=== PATIENT | female | born 1955 | race African-American/Black ===

== ENCOUNTER → 2019-02-01 | Outpatient (CLI) | payer BC ==
--- NOTE | 2019-02-01 12:12 | KCIC ---
EXAM: Abdomen sonogram. HISTORY: Pain. TECHNIQUE: Sonographic imaging of the abdomen was performed. COMPARISON: None. FINDINGS: The liver is enlarged. There is hepatic steatosis. No focal hepatic lesion is seen. The common bile duct is normal in caliber. There is a 6 mm nonmobile echogenic lesion along the gallbladder wall, likely a polyp. The gallbladder is otherwise unremarkable. The kidneys are unremarkable. The spleen is normal in size. The pancreas is partially obscured due to bowel gas. The aorta is normal in caliber. The inferior vena cava is patent. IMPRESSION: 1. Hepatomegaly and hepatic steatosis. 2. 6 mm suspected gallbladder polyp. 3. Obscured pancreas due to bowel gas. Electronically signed by: Priscila Avery MD (02/01/2019 12:09 PM) [id number]
== END | disposition home or self-care (01) ==
LOC: KCIC US 07:45
PROVIDERS: ATTEND Internal Medicine
DX: K76.0 Fatty (change of) liver, not elsewhere classified (principal); K82.4 Cholesterolosis of gallbladder; R16.0 Hepatomegaly, not elsewhere classified
CPT/HCPCS: 76700

== ENCOUNTER → 2019-03-12 | Day surgery (SDC) | payer BC ==
[~2019-03-12] VITALS: Ht 170.2 cm; Wt 101.1 kg
[~2019-03-12] MED LIST: BUPIVAC MPF-EPI 0.5%-1:200000 30 ML VIAL. ONE; DEXAMETHASONE SOD PHOS 4 MG/ML VIAL ONE; GLYCOPYRROLATE 1 MG/5 ML VIAL. ONE; HYDROmorphone 2 MG/ML VIAL IV PRN; IOHEXOL 300 MG/ML 50 ML VIAL. ONE; IV RINGERS,LACTATED 1000ML 1,000 ML IV SCH; KETOROLAC 30 MG/ML INJ FOR OR. INJ ONE; LIDOCAINE 1% PF 2 ML VIAL. ID PRN; LIDOCAINE 2% PF 5 ML VIAL. ONE; MIDAZOLAM HCL/PF 2 MG/2 ML VIAL. ONE; MORPHINE SULFATE 2 MG/ML VIAL. IV PRN; NEOSTIGMINE METHYLSULFATE 5 MG/5 ML SYRINGE. ONE; ONDANSETRON PF 4 MG/2 ML VIAL. IV PRN; ONDANSETRON PF 4 MG/2 ML VIAL. ONE; PROCHLORPERAZINE 10 MG/2 ML VIAL. IV PRN; PROPOFOL 20 ML IV ONE; ROCURONIUM 50 MG/5 ML VIAL. ONE; SEVOFLURANE > 120 MINUTES. IH ONE; ePHEDrine PF IN SALINE 50 MG/10 ML SYRINGE. IV ONE; fentaNYL PF VIAL 100 MCG/2 ML VIAL IV PRN; fentaNYL PF VIAL 100 MCG/2 ML VIAL ONE; oxyCODONE/APAP 7.5/325 1 TAB TABLET PO ONE
--- NOTE | 2019-03-12 06:41 | HP ---
ADMIT DATE: HISTORY OF PRESENT ILLNESS: The patient is referred because of a mass in the gallbladder. She apparently for about a month, had had some symptoms with the right upper quadrant pain radiating to the back with some bloating and therefore, she had a sonogram, which showed that she has what looks like a polyp in the gallbladder. She clearly understands that she does have a diseased gallbladder and all the symptoms otherwise may or may not be related to the gallbladder. PAST MEDICAL HISTORY: Shows normal childhood diseases. She is treated for hypercholesterolemia and hypertension. She did have years ago radioactive I-131 for thyroid ablation and now, she takes Synthroid for that. She does not take aspirin today or any anticoagulants. PAST SURGICAL HISTORY: Has included a total abdominal hysterectomy for bleeding, fibroids and she also had a laparoscopic tubal ligation many years ago. ALLERGIES: The patient denies any allergies. SOCIAL HISTORY: Shows that she does not smoke, drink or use illicit drugs. FAMILY HISTORY: Noncontributory for gallstones and she does have four children alive and well. REVIEW OF SYSTEMS: Basically negative except for the gas, bloating and abdominal discomfort. PHYSICAL EXAMINATION: GENERAL: Shows an alert female in no acute distress. HEAD, EYES, EARS, NOSE AND THROAT: Negative. There is no scar in the neck as she had radioactive iodine and thyroid ablation. No guarding was noted. BREASTS: Not examined. CHEST: Clear bilaterally to auscultation. HEART: Had no murmurs, heaves, friction, rubs or thrills and the rate was 74 beats per minute and it was regular. ABDOMEN: Soft, was not protuberant. She did not have tenderness on the day of examination. No guarding, rebound, or other abnormalities. PELVIC: Not done. IMPRESSION: 1. Tumor gallbladder. 2. Hypertension. 3. Hypercholesterolemia. 4. Hypothyroidism, based on I-131 treatment. JEFFREY PERRY MD DR: AYALA/brett JOB#: [id number] / [id number]
[2019-03-12 09:54] LABS: BASO # 0.1 x10^3/uL (0.0-0.2); BASO % 1 % (0-3); EOS # 0.2 x10^3/uL (0.0-0.7); EOS % 2 % (0-3); HEMATOCRIT 38.6 % (36.0-47.0); HEMOGLOBIN 12.7 g/dL (12.0-15.5); LYMPH # 2.8 x10^3/uL (1.0-4.8); LYMPH % 33 % (24-48); MEAN CORPUSCULAR HEMOGLOBIN 30 pg (25-35); MEAN CORPUSCULAR HGB CONC 33 g/dL (31-37); MEAN CORPUSCULAR VOLUME 90 fL (79-100); MONO # 0.5 x10^3/uL (0.0-1.1); MONO % 6 % (0-9); NEUT % 59 % (31-73); PLATELET COUNT 249 x10^3/uL (140-400); RED BLOOD COUNT 4.28 x10^6/uL (3.50-5.40); RED CELL DISTRIBUTION WIDTH 13.6 % (11.5-14.5); WHITE BLOOD COUNT 8.5 x10^3/uL (4.0-11.0)
[2019-03-12 10:04] LABS: PROTHROMBIN TIME PATIENT 13.4 SEC (11.7-14.0)
[2019-03-12 10:12] LABS: CALCIUM 8.5 mg/dL (8.5-10.1); CREATININE 0.9 mg/dL (0.6-1.0); GFR 76.8; POTASSIUM 3.5 mmol/L (3.5-5.1)
[2019-03-12 10:16] LABS: ALBUMIN 3.3 g/dL (3.4-5.0); ALBUMIN/GLOBULIN RATIO 0.8 (1.0-1.7); TOTAL BILIRUBIN 0.7 mg/dL (0.2-1.0); TOTAL PROTEIN 7.6 g/dL (6.4-8.2)
--- NOTE | 2019-03-12 11:13 | PDOC ---
SURGICAL PROGRESS NOTE Subjective Op Note: Surgeon.................................................Jaren Pre op- diag...........................................mass of gallbladder Post op- diag.........................................mass of gallbladder Anesthesia............................................genera Procedure.............................................lap marie with grams Blood loss.............................................15 Drains...................................................none Fluids...................................................see anesthesia sheet Condition..............................................satisfactory Vital Signs Vital Signs Date Time Temp Pulse Resp B/P (MAP) Pulse Ox O2 Delivery O2 Flow Rate FiO2 03/12/19 09:23 98.3 65 20 97 98.3 03/12/19 09:15 139/87 Room Air Labs Laboratory Tests Test 03/12/19 09:40 White Blood Count 8.5 x10^3/uL (4.0-11.0) Red Blood Count 4.28 x10^6/uL (3.50-5.40) Hemoglobin 12.7 g/dL (12.0-15.5) Hematocrit 38.6 % (36.0-47.0) Mean Corpuscular Volume 90 fL (79-100) Mean Corpuscular Hemoglobin 30 pg (25-35) Mean Corpuscular Hemoglobin Concent 33 g/dL (31-37) Red Cell Distribution Width 13.6 % (11.5-14.5) Platelet Count 249 x10^3/uL (140-400) Neutrophils (%) (Auto) 59 % (31-73) Lymphocytes (%) (Auto) 33 % (24-48) Monocytes (%) (Auto) 6 % (0-9) Eosinophils (%) (Auto) 2 % (0-3) Basophils (%) (Auto) 1 % (0-3) Neutrophils # (Auto) 5.0 x10^3uL (1.8-7.7) Lymphocytes # (Auto) 2.8 x10^3/uL (1.0-4.8) Monocytes # (Auto) 0.5 x10^3/uL (0.0-1.1) Eosinophils # (Auto) 0.2 x10^3/uL (0.0-0.7) Basophils # (Auto) 0.1 x10^3/uL (0.0-0.2) Prothrombin Time 13.4 SEC (11.7-14.0) Prothromb Time International Ratio 1.1 (0.8-1.1) Activated Partial Thromboplast Time 26 SEC (24-38) Sodium Level 144 mmol/L (136-145) Potassium Level 3.5 mmol/L (3.5-5.1) Chloride Level 106 mmol/L (98-107) Carbon Dioxide Level 28 mmol/L (21-32) Anion Gap 10 (6-14) Blood Urea Nitrogen 9 mg/dL (7-20) Creatinine 0.9 mg/dL (0.6-1.0) Estimated GFR (Cockcroft-Gault) 76.8 BUN/Creatinine Ratio 10 (6-20) Glucose Level 101 mg/dL (70-99) Calcium Level 8.5 mg/dL (8.5-10.1) Total Bilirubin 0.7 mg/dL (0.2-1.0) Aspartate Amino Transf (AST/SGOT) 25 U/L (15-37) Alanine Aminotransferase (ALT/SGPT) 29 U/L (14-59) Alkaline Phosphatase 114 U/L (46-116) Total Protein 7.6 g/dL (6.4-8.2) Albumin 3.3 g/dL (3.4-5.0) Albumin/Globulin Ratio 0.8 (1.0-1.7) Laboratory Tests Test 03/12/19 09:40 White Blood Count 8.5 x10^3/uL (4.0-11.0) Red Blood Count 4.28 x10^6/uL (3.50-5.40) Hemoglobin 12.7 g/dL (12.0-15.5) Hematocrit 38.6 % (36.0-47.0) Mean Corpuscular Volume 90 fL (79-100) Mean Corpuscular Hemoglobin 30 pg (25-35) Mean Corpuscular Hemoglobin Concent 33 g/dL (31-37) Red Cell Distribution Width 13.6 % (11.5-14.5) Platelet Count 249 x10^3/uL (140-400) Neutrophils (%) (Auto) 59 % (31-73) Lymphocytes (%) (Auto) 33 % (24-48) Monocytes (%) (Auto) 6 % (0-9) Eosinophils (%) (Auto) 2 % (0-3) Basophils (%) (Auto) 1 % (0-3) Neutrophils # (Auto) 5.0 x10^3uL (1.8-7.7) Lymphocytes # (Auto) 2.8 x10^3/uL (1.0-4.8) Monocytes # (Auto) 0.5 x10^3/uL (0.0-1.1) Eosinophils # (Auto) 0.2 x10^3/uL (0.0-0.7) Basophils # (Auto) 0.1 x10^3/uL (0.0-0.2) Prothrombin Time 13.4 SEC (11.7-14.0) Prothromb Time International Ratio 1.1 (0.8-1.1) Activated Partial Thromboplast Time 26 SEC (24-38) Sodium Level 144 mmol/L (136-145) Potassium Level 3.5 mmol/L (3.5-5.1) Chloride Level 106 mmol/L (98-107) Carbon Dioxide Level 28 mmol/L (21-32) Anion Gap 10 (6-14) Blood Urea Nitrogen 9 mg/dL (7-20) Creatinine 0.9 mg/dL (0.6-1.0) Estimated GFR (Cockcroft-Gault) 76.8 BUN/Creatinine Ratio 10 (6-20) Glucose Level 101 mg/dL (70-99) Calcium Level 8.5 mg/dL (8.5-10.1) Total Bilirubin 0.7 mg/dL (0.2-1.0) Aspartate Amino Transf (AST/SGOT) 25 U/L (15-37) Alanine Aminotransferase (ALT/SGPT) 29 U/L (14-59) Alkaline Phosphatase 114 U/L (46-116) Total Protein 7.6 g/dL (6.4-8.2) Albumin 3.3 g/dL (3.4-5.0) Albumin/Globulin Ratio 0.8 (1.0-1.7) JEFFREY PERRY MD Mar 12, 2019 11:13
--- NOTE | 2019-03-12 13:04 | RAD ---
C-arm fluoroscopy with fluoroscopic spot views Clinical indications: Intraoperative cholangiogram. Total fluoroscopic time: 0.10 minutes. Total fluoroscopic spot views: 2. IMPRESSION: Fluoroscopic spot views demonstrate opacification of the extrahepatic biliary tree with free flow of contrast material from the common bile duct into the duodenum. No common bile duct stone or stricture is seen. Electronically signed by: Hao Lovell MD (03/12/2019 1:00 PM) [facility]
--- NOTE | 2019-03-12 14:34 | DISCH ---
DISCHARGE INSTRUCTIONS Condition on Discharge Condition on Discharge: Stable Activity After Discharge Activity Instructions for Disc: Other, see below Other activity instructions: no strenuous activity and may shower Diet after Discharge Diet after Discharge: Clear Liquid Wound Incision Care Wound/Incision Care: Other, see below Other wound/incision instructi: Leave dressing on as long as possible. May remove dressing then bandaid Follow-Up Follow up with: call and make appointment to see me in 14 days. JEFFREY PERRY MD Mar 12, 2019 14:34
[2019-03-12 15:10] VITALS: BP 123/74
--- NOTE | 2019-03-12 20:35 | OP ---
DATE OF SURGERY: SURGEON: Fidel Perry MD PREOPERATIVE DIAGNOSIS: Mass of the gallbladder. POSTOPERATIVE DIAGNOSES: Mass of the gallbladder. ANESTHESIA: General. PROCEDURE: Laparoscopic cholecystectomy with operative cholangiogram. TECHNIQUE: Under general anesthesia, the patient was properly prepped and draped in a routine fashion. The patient had had infraumbilical surgery and has had hysterectomy and other procedures and as such, we made a small incision in the right upper quadrant and passed a balloon up with towel clips on either side, made past the Veress needle down into the peritoneal cavity. We instilled about 2-3 mL of saline and that it flow in right gravity into the abdominal cavity and then insufflated the abdomen with CO2 up to 15. The needle was removed and a 5 mm trocar was placed there. The 5 mm camera was placed there also. There was a lot of omentum up and over the liver and we could not see the gallbladder. Did not know, if these were adhesions or not. There were no adhesions to the anterior abdominal wall and as such, an incision was made in the infraumbilical area and an 11 mm trocar was placed there. The camera was then removed and a 10 mm camera was placed in the infraumbilical port. We then passed a non-cutting blade, a trocar, and nonbladed trocar in the epigastrium just to the right of the falciform ligament and then the lateral abdomen placed a trocar also. We then placed the patient in reverse Trendelenburg left side down and using the dissected graspers, we slowly pushed the omentum down and luckily there were no adhesions. We came down off the liver and off the gallbladder with ease. The fundus of the gallbladder was then grasped with the right lateral grasper and the gallbladder was placed up toward the patient's right shoulder. We then grasped the ampulla of the gallbladder and there was a lot of fat there. We teased this away and could see the cystic duct. We then encircled the cystic duct and put clips two on the gallbladder side as the cystic duct into the gallbladder. We then made a small incision in the cystic duct and then passed through a needle in the right abdomen, passed the catheter with the dye in it and passed into the cystic duct and clipped it in place. We had got all the air out of the tube before putting it in the cystic duct. We then got cholangiograms and they were normal with a dye flowing freely into the duodenum. No filling defects. There was no extravasation. Dye went into the hepatic radicals. The common duct was normal in size. The cystic duct tapered normally and there were no abnormalities and I reviewed this with the radiologist personally. We then removed the clip holding the catheter in place, removed the catheter and needle there, and then clipped the cystic duct 3 times on the patient's side and divided it. The cystic artery was identified. It was clipped twice on the patient's side and once on the gallbladder side and divided. We then shelled the gallbladder out of the gallbladder fossa using Harmonic scalpel. Before it was completely removed, we inspected the hilum. There was no bleeding, no bile leaks and everything was normal. We then amputated the gallbladder from the liver tip. I placed a 5 mm camera in the epigastric port and the EndoCatch basket through the umbilical port, and placed the gallbladder into this and then closed it. Graspers having been released, we then were able to deliver the gallbladder and the trocar completely. The resultant defect at the infraumbilical area was approximated with 3 #1 Prolene sutures. We then insufflated the abdomen. It was obvious that no injury to the intra-abdominal contents had been made. Nothing was adherent to the anterior abdominal wall and the sutures have been placed in the abdomen, only the fascia. We then inspected the area. A small bit of blood was aspirated from the lateral liver, gutter, and all appeared normal and unremarkable. As such, all of the CO2 was aspirated out of the abdomen, especially under the diaphragm and the trocars and camera were all removed. The subcutaneous was irrigated with saline and then approximated with 3-0 Vicryl and the skin was closed using a subcuticular Vicryl in all locations. The procedure was now terminated as Tegaderm dressings were applied. BLOOD LOSS: Less than 10-15 mL. FLUIDS GIVEN: Can be obtained from the anesthesia sheet. No drains were used. CONDITION OF THE PATIENT: Satisfactory as she has returned to the recovery room. FIDEL PERRY MD DR: AYALA/brett JOB#: [id number] / [id number] FIDEL Mckeon MD MTDD
--- NOTE | 2019-03-15 15:05 | PATHOLOGY ---
[facility] Accession Number: [id number] . 01 Material submitted: . gallbladder - GALLBLADDER . 01 Clinical history: . Cholelithiasis Note: Dr. Eastman said that ultrasound reported a gallbladder tumor or polyp . 02 Diagnosis: Gallbladder, cholecystectomy: - Cholesterolosis, focally polypoid. - Chronic cholecystitis. - Lipogranulomata of gallbladder neck lymph node. . (JPM:mml; 03/15/2019) [facility]/03/15/2019 . 02 Comment: There are no calculi identified within the gallbladder lumen or specimen container. The gallbladder polyp is a focus of polypoid cholesterolosis. There is no evidence of malignancy. . (JPM:mml; 03/15/2019) . 02 Electronically signed: . Devyn Lara MD, Pathologist NPI- [id number] . 01 Gross description: . Received in formalin labeled "Peter, Britt, gallbladder," is an intact gallbladder measuring 8.4 x 2.8 x 2.2 cm in greatest dimensions. The serosal surface is smooth to shaggy, dark blue-green and partially adipose-covered in appearance. A dark sparks-brown possible lymph node is noted near the infundibulum, measuring 0.7 x 0.7 x 0.4 cm. The hepatic surface is inked black. Opening the specimen reveals a granular, dark green mucosa stippled with prominent yellow highlights and measuring 0.1 cm in thickness, with a gallbladder wall thickness of up to 0.2 cm including attached adipose tissue. A dark green-black possible polyp is noted on the mucosal surface, measuring 0.4 x 0.3 x 0.2 cm and extending to within 4.4 cm of the infundibulum. Calculi are not present within the specimen or specimen container. [employer] sections of the infundibulum, body and fundus are submitted in cassette A1, to include the possible polyp. The possible lymph node is bisected and submitted entirely in cassette A2. ([facility]; 03/13/2019) XDC/XDC . 02 Pathologist provided ICD-10: K81.1, K82.4 . 02 CPT . 716371 Specimen Comment: A courtesy copy of this report has been sent to Specimen Comment: [phone], . Specimen Comment: Report sent to / DR ALDRIDGE Performed at: 01 [facility] [address] [facility] [address], [place] [id number] MD Julio Cesar Dawkins MD Phone: [phone] Performed at: 02 [facility] [address] [place], [place] [id number] MD Devyn Lara MD Phone: [phone]
== END ==
LOC: SURG 08:52
PROVIDERS: ATTEND Specialist
DX: K80.10 Calculus of gallbladder with chronic cholecystitis without obstruction (principal); R59.1 Generalized enlarged lymph nodes; E78.00 Pure hypercholesterolemia, unspecified; I10 Essential (primary) hypertension; E03.9 Hypothyroidism, unspecified; Z90.710 Acquired absence of both cervix and uterus; Z79.01 Long term (current) use of anticoagulants; Z98.51 Tubal ligation status
CPT/HCPCS: 36415; 47563; 74300; 80053; 85025; 85610; 85730; 88304; A7015; J0171; J0690; J1100; J1885; J2001; J2250; J2405; J2704; J2710; J3010; J3490; J7030; J7120; Q9967